=== PATIENT | male | born 1965 | race Caucasian/White ===

== ENCOUNTER 2023-06-26 12:53 | Outpatient (CLI) | payer OTHER, SELFPAY | END 2023-06-26 12:54 | disposition home or self-care (01) | PROVIDERS: PCP Family Medicine; Visit Provider Family Medicine | DX: I10 Essential (primary) hypertension (principal); Z13.220 Encounter for screening for lipoid disorders; Z12.5 Encounter for screening for malignant neoplasm of prostate | CPT/HCPCS: 80048; 80061; G0103 ==

== ENCOUNTER 2023-07-13 12:04 | Emergency (ER) | payer OTHER, SELFPAY ==
[2023-07-13 12:09] VITALS: BP 170/124; PULSE 90; RESP 22; TEMP 35.7; O2SAT 96; BMI 49.4
[2023-07-13 12:26] LABS: Appearance Urine Slightly Cloudy (Clear); Bilirubin Urine Negative (Negative); Blood Urine 3+ (Negative); Color Urine Yellow (Yellow); Glucose Urine Negative (Negative); Ketones Urine Negative (Negative); Leukocyte Esterase Urine 3+ (Negative); Nitrite Urine Negative (Negative); Protein Urine 3+ (Negative); Specific Gravity Urine >= 1.030 (1.000-1.030); Urobilinogen Urine 0.2 (0.2-1.0); pH Urine 5.5 (5.0-8.5)
[2023-07-13 12:35] LABS: Bacteria Urine Many; RBC Urine 25-50 (0-2); Squamous Epithelial Cell Urine Moderate (None-Few); WBC Urine >100 (0-5)
--- NOTE | 2023-07-13 12:58 | ED.MALEGU ---
HPI - Male Genitourinary General Date Seen: 07/13/23 Chief complaint: Urogenital Problems, Male Stated complaint: UTI Time Seen by Provider: 07/13/23 12:05 Source: patient Mode of arrival: ambulatory Limitations: no limitations History of Present Illness HPI Narrative: Patient is a 58-year-old male with history of hypertension presenting to the emergency department for dysuria and increased frequency. He states for the past few days he has been having some burning with urination and states he feels like he has to go multiple times a day pick only goes small amounts. He has never had issues like this before. Is he concerned he could have a urinary tract infection. Thinks he might have had a fever earlier in the week but none since then. She is not having any abdominal pain, of nausea/vomiting, diarrhea, lightheadedness, dizziness, weakness, numbness. He states he otherwise feels fine. He is not concerned for STDs at all at this time. Has not had any penile discharge, rashes, lesions. Related Data Previous Rx's Medication Instructions Recorded losartan 50 mg-hydrochlorothiazide 1 tab PO QDAY #30 tabs 06/28/23 12.5 mg tablet levofloxacin 750 mg tablet 750 mg PO Q24H #5 tabs 07/13/23 Allergies Allergy/AdvReac Type Severity Reaction Status Date / Time Penicillins Allergy Mild Unknown Verified 06/26/23 12:23 Review of Systems Status of ROS: Reports: 10 or more systems reviewed and unremarkable except as noted in History and below PFSH PFSH Medical History Primary hypertension ?I10 - Essential (primary) hypertension (ICD-10) Morbid obesity ?E66.01 - Morbid (severe) obesity due to excess calories (ICD-10) History of varicocele (04/2021) ?Z86.79 - Personal history of other diseases of the circulatory system (ICD-10) Surgical History History of arthroscopy of right knee ?Z98.890 - Other specified postprocedural states (ICD-10) History of removal of cyst ?Z98.890 - Other specified postprocedural states (ICD-10) History of hernia repair ?Z98.890 - Other specified postprocedural states (ICD-10) ?Z87.19 - Personal history of other diseases of the digestive system (ICD-10) Family History Father Prostate cancer Social History Narrative: , 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 Moist mucous membranes. GI: Nontender/Nondistended, No rebound or guarding. MSK:Extremities w/o deformity, Normal Active ROM Skin: Warm, Dry. No rashes or lesions. Neuro: Normal Muscle tone, No focal neurological deficits. Psych: Awake, Alert, & Oriented x3. Appropriate mood and affect. Const: Vital Signs, click to edit/add: Vital Signs - 24 hr 07/13/23 12:09 Temperature 96.3 F L Pulse Rate [Right Pulse Oximeter] 90 Respiratory Rate 22 Blood Pressure [Ri ght Forearm] 170/124 H Pulse Oximetry 96 Oxygen Delivery Me thod Room Air Course Vital Signs Vital signs: Initial Vital Signs Temperature 96.3 F L 07/13/23 12:09 Temperature Source Temporal Artery Scan 07/13/23 12:09 Pulse Rate 90 07/13/23 12:09 Pulse Rhythm Regular 07/13/23 12:09 Pulse Strength 3+ Normal 07/13/23 12:09 Respiratory Rate 22 07/13/23 12:09 Blood Pressure 170/124 H 07/13/23 12:09 Blood Pressure Mean 139 H 07/13/23 12:09 Blood Pressure Position Sitting 07/13/23 12:09 Pulse Oximetry 96 07/13/23 12:09 Oxygen Delivery Method Room Air 07/13/23 12:09 Vital Signs Temperature 96.3 F L 07/13/23 12:09 Pulse Rate 90 07/13/23 12:09 Respiratory Rate 22 07/13/23 12:09 Blood Pressure 170/124 H 07/13/23 12:09 Pulse Oximetry 96 07/13/23 12:09 Oxygen Delivery Method Room Air 07/13/23 12:09 Temperature 96.3 F L 07/13/23 12:09 Pulse Rate 90 07/13/23 12:09 Respiratory Rate 22 07/13/23 12:09 Blood Pressure 170/124 H 07/13/23 12:09 Pulse Oximetry 96 07/13/23 12:09 Oxygen Delivery Method Room Air 07/13/23 12:09 MDM - Male Genitourinary MDM Narrative Medical decision making narrative: Patient is a 58-year-old male presenting to the emergency department for what sounds like a UTI. While it is most likely may get UTIs and still can happen. I I spoke to her about possible STD testing but this time he declined this states he is not concerned about getting STD. He is having some very mild back pain started this morning but he does state he has had chronic pain due to his multiple injuries in the past and he has no CVA tenderness this seems very unlikely to be pyelonephritis. He has some blood in his urine also but again his symptoms seem much more likely to be a UTI than a kidney stone. He otherwise looks well at this time. I do not believe imaging is necessary at this time. Urinalysis was started was does show what appears to be UTI. I will start him on antibiotics. He is agreeable to this plan. Lab Data Labs: Lab Results 07/13/23 Range/Units 12:19 Urine Color Yellow (Yellow) Urine Appearance Slightly Cloudy A (Clear) Urine pH 5.5 (5.0-8.5) Ur Specific [place] >= 1.030 (1.000-1.030) Urine Protein 3+ A (Negative) Urine Glucose (UA) Negative (Negative) Urine Ketones Negative (Negative) Urine Blood 3+ A (Negative) Urine Nitrite Negative (Negative) Urine Bilirubin Negative (Negative) Urine Urobilinogen 0.2 (0.2-1.0) Ur Leukocyte Esterase 3+ A (Negative) Urine RBC 25-50 A (0-2) Urine WBC >100 A (0-5) Ur Squamous Epith Cells Moderate A (None-Few) Urine Bacteria Many A (None) Discharge Plan Discharge Clinical Impression: Urinary tract infection Qualifiers: Urinary tract infection type: acute cystitis Hematuria presence: with hematuria Qualified Code(s): N30.01 - Acute cystitis with hematuria Patient Disposition: Home, Self-Care Condition: Stable Instructions: Urinary Tract Infection in Men (DC) Additional Instructions: Take antibiotics as directed. If you are still having symptoms next week I recommend following up with the primary care provider. Return to emergency department for new or worsening symptoms. Prescriptions: New levofloxacin 750 mg tablet 750 mg PO Q24H Qty: 5 0RF No Action losartan-hydrochlorothiazide 50-12.5 mg tablet 1 tab PO QDAY Qty: 30 1RF Follow Up/Referrals: Jacques Post MD [Primary Care Provider] - Stand Alone Forms: [employer] Info Instructions
[2023-07-13 13:16] VITALS: BP 141/101
== END 2023-07-13 13:16 | disposition home or self-care (01) ==
PROVIDERS: Emergency Provider Student in an Organized Health Care Education/Training Program; PCP Family Medicine
DX: N39.0 Urinary tract infection, site not specified (principal)
CPT/HCPCS: 81001; 87086; 87186; 99282; 99283

== ENCOUNTER 2024-08-26 18:16 | Emergency (ER) | payer OTHER, SELFPAY ==
--- OUTSIDE RECORDS SUMMARY | 2024-08-26 18:18 | XMS_ITS | Clinical Summary ---
Author Organization [facility] Address [address] [place] [id number] Care Team Providers Care Safety And Skill Based Pay Manager Name Role Phone Pcp, No Primary Care Provider Unavailabl e Allergies Active Allergy Reactions Criticality Noted Date Comments Penicillins Other - Describe In Comment Field 0 09/24/2012 Penicillins *Unknown 07/10/2010 Medications lisinopril (PRINIVIL; ZESTRIL) 10 mg tabletIndication s:HTN (hypertension) TAKE ONE TABLET BY MOUTH ONCE DAILY 30 tablet 10/30/2016 Active Active Problems Problem Noted Date Diagnosed Date HTN (hypertension) 05/20/2016 Immunizations Immunization Administration Dates Next Due Tuberculin (PPD) 07/10/2010 Social History Tobacco Use Types Packs/Day Years Used Date Smoking Tobacco: Former Smokeless Tobacco: Former Alcohol Use Standard Drinks/Week Comments Not Asked 0 (1 standard drink = 0.6 oz pur e alcohol) Sex and Gender Information Value Date Recorded Sex Assigned at Not on file Legal Sex Male 4:33 PM CDT Gender Identity Not on file Sexual Orientation Not on file Obstetrics History Last Filed Vital Signs Vital Sign Reading Time Taken Comments Blood Pressure 127/79 05/31/2016 8:50 AM PROCESS STEWARD Pulse 71 05/31/2016 8:50 AM PROCESS STEWARD Temperature 36.7 C (98 F) 04/24/2016 11:34 AM PROCESS STEWARD Respiratory Rate 17 12/06/2015 11:45 PM CDT Oxygen Saturation 99% 12/06/2015 11:45 PM CDT Inhaled Oxygen Concentration - - Weight 174.6 kg (385 lb) 05/31/2016 8:50 AM PROCESS STEWARD Height 188 cm (6' 2.02) 12/06/2015 11:45 PM CDT Body Mass Index 49.41 12/06/2015 11:45 PM CDT Plan of Treatment Health Maintenance Due Date Last Done Comments Tdap 1977 HIV for age 15-65 1981 Hepatitis C screening for age 18-79 1984 Tetanus booster 1986 Colonoscopy through age 75 2011 Lipids for age 45-75 2011 Pneumococcal series for age 50+ (1 of 1 - PCV) 017 Zoster (shingles) series for age 50+ (1 of 2) 06/03/19 17 BMI (ht and wt on same day) for age 18+ 12/05/2016 0 12/06/2015 Depression screening for age 12+ 05/18/2017 05/18/20 16 COVID-19 vaccine series (2023- season) Influenza Vaccine (#1) 2024 Insurance [facility] ADVANTAGE PLAN BISHNU ANDERSON [id number] [facility] Care Teams Safety And Skill Based Pay Manager Relationship Specialty Start Date End Date Pcp, No . PCP - General 09/24/12
[2024-08-26 18:19] VITALS: BP 112/79; PULSE 102; RESP 18; TEMP 36.5; O2SAT 96; BMI 49.4
[2024-08-26 18:40] LABS: Appearance Urine Cloudy (Clear); Bilirubin Urine 2+ (Negative); Blood Urine 3+ (Negative); Color Urine Brown (Yellow); Glucose Urine Trace (Negative); Ketones Urine Trace (Negative); Leukocyte Esterase Urine 3+ (Negative); Nitrite Urine Positive (Negative); Protein Urine 3+ (Negative); pH Urine 5.5 (5.0-8.5)
[2024-08-26 19:03] LABS: Bacteria Urine Many; RBC Urine 50-100 (0-2); Squamous Epithelial Cell Urine Moderate (None-Few); WBC Urine 50-100 (0-5)
--- NOTE | 2024-08-26 19:30 | CRLHL7_ITS ---
For Patients: As a result of the Century Cures Act, medical imaging exams and procedure reports are released immediately into your electronic medical record. You may view this report before your referring provider. If you have questions, please contact your health care provider. Indication: Hematuria, UTI, right lower flank pain Technique: CT through the abdomen and pelvis following 150 mL Isovue 370 IV contrast Comparison: None Findings: Lower chest: Cardiomegaly. Hepatobiliary: Ill-defined and indeterminate density lesion in the right liver measures 2.5 centimeters. Spleen: Unremarkable. Pancreas: No acute abnormality appreciated. Adrenal glands: No acute abnormality appreciated. Kidneys: No significant parenchymal abnormality appreciated. No visualized calculi. No hydronephrosis. Bowel: Diverticulosis. No obstruction. Small hiatal hernia. No focal perienteric or pericolonic stranding is appreciated. The appendix is visualized and appears unremarkable. Vascular: Atherosclerosis. Lymph nodes: Shotty pelvic lymph nodes. Peritoneum: No free air. No free fluid. : Severe wall thickening and adjacent stranding of the bladder. Soft tissues: No acute abnormality appreciated. Bones: No acute fracture. No lytic or blastic lesion. Degenerative changes of the spine and pelvis. Impression: 1. Severe wall thickening and adjacent stranding involving the bladder compatible with reported history of UTI. No other acute abnormality appreciated. 2. Ill-defined indeterminate density lesion in the right liver measures 2.5 centimeters. No prior examination available for comparison. Nonemergent outpatient liver protocol MRI or CT recommended for further evaluation. Please note that all CT scans at this facility use dose modulation, iterative reconstruction, and/or weight-based dosing when appropriate to reduce radiation dose to as low as reasonably achievable. Dictated by Rinku Silveira MD @ 08/26/2024 9:27:09 PM (Electronically Signed)
--- OUTSIDE RECORDS SUMMARY | 2024-08-26 19:36 | XMS_ITS | Clinical Summary ---
Author Organization [facility] Address [address] [place] [id number] Care Team Providers Care Pole Incisor Operator Name Role Phone Pcp, No Primary Care [...] Comments Blood Pressure 127/79 05/31/2016 8:50 AM CUSHION PADDER Pulse 71 05/31/2016 8:50 AM CUSHION PADDER Temperature 36.7 C (98 F) 04/24/2016 11:34 AM CUSHION PADDER Respiratory Rate 17 12/06/2015 11:45 PM CDT Oxygen Saturation 99% 12/06/2015 11:45 PM CDT Inhaled Oxygen Concentration - - Weight 174.6 kg (385 lb) 05/31/2016 8:50 AM CUSHION PADDER Height 188 cm (6' 2.02) 12/06/2015 11:45 [...] (2023- season) Influenza Vaccine (#1) 2024 Insurance [facility] ADVANTAGE PLAN BISHNU ANDERSON [id number] [facility] Care Teams Pole Incisor Operator Relationship Specialty Start Date End Date Pcp, No . PCP - General 09/24/12
--- NOTE | 2024-08-26 19:49 | ED_ITS ---
HPI - General Adult General Date Seen: 08/26/24 Chief complaint: Urogenital Problems, Male Stated complaint: uti Time Seen by Provider: 08/26/24 19:24 Source: patient Mode of arrival: ambulatory Limitations: no limitations History of Present Illness HPI narrative: patient is a 59-year-old male presenting to the emergency department for concerns of a UTI. He started noticing symptoms 3 days ago and tried some [id number] medication without any improvement. Symptoms kept getting worse so he came to the emergency department for evaluation. States he has had a UTI before and has felt very similar. Note he has been urinating quite a bit of blood also and passing clots. Also states he does not feel like he is fully emptying his bladder when he urinates. Does not feel like he is urinating more frequently though. Does note some very mild 1/10 right lower flank discomfort they just started to notice today. Has not had pain in this area before that he is aware of. Denies fevers, chills, chest pain, shortness of breath, weakness, numbness, abdominal pain, diarrhea, constipation. No other concerns noted no history of smoking. Related Data Previous Rx's ?Medication ?Instructions ?Recorded amlodipine 5 mg tablet 5 mg PO QDAY #90 tabs 04/08/24 losartan 100 1 tab PO QDAY #90 tabs 04/08/24 mg-hydrochlorothiazide 12.5 mg tablet cefpodoxime 200 mg tablet 200 mg PO BID 10 days #20 tabs 08/26/24 Allergies Allergy/AdvReac Type Severity Reaction Status Date / Time Penicillins Allergy Mild Unknown Verified 04/08/24 11:46 Review of Systems Status of ROS: Reports: 10 or more systems reviewed and unremarkable except as noted in History and below [facility] Medical History Primary hypertension ?I10 - Essential (primary) hypertension (ICD-10) Morbid obesity ?E66.01 - Morbid (severe) obesity due to excess calories (ICD-10) History of varicocele (04/2021) ?Z86.79 - Personal history of other diseases of the circulatory system (ICD- 10) Surgical History History of arthroscopy of right knee ?Z98.890 - Other specified postprocedural states (ICD-10) History of removal of cyst ?Z98.890 - Other specified postprocedural states (ICD-10) History of hernia repair ?Z98.890 - Other specified postprocedural states (ICD-10) ?Z87.19 - Personal history of other diseases of the digestive system (ICD-10) Family History Father Prostate cancer Social History Narrative: , 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[employer], 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, no EtOH What is your current living situation?: I presently have a place to live Problems where you live: no known problems In the past 12 months, utilities in danger of being shut off: no In past 12 months, lack of transportation kept you from medical appts, meetings, work, or getting things needed for daily living: no In the past 12 mos, have been you worried that your food would run out before you had money to buy more?: sometimes true In the past 12 mos, the food you bought just didn't last and you didn't have money to buy more?: never true Smoking Status: Never smoker Do you use any of these nicotine containing products: None Second hand tobacco smoke exposure: No How often do you have a drink containing alcohol: never How often do you have six or more drinks on one occasion: Never AUDIT-C Alcohol total score: 0 Non-prescribed substance use: denies use How often does anyone, including family, friends and others, physically hurt you : never How often does anyone, including family, friends and others, insult or talk down to you: never How often does anyone, including family, friends and others, threaten you with harm: never How often does anyone, including family, friends and others, scream or curse at you: never service: No Health Related Social Needs: food insecurity (Z59.41) Exam Narrative: Exam Narrative: Const: Well-nourished, Well-developed, in No distress Eyes: PERRL, no conjunctival injection, and symmetrical lids HENT: Atraumatic external nose and ears. Moist mucous membranes. Neck: Symmetric, trachea midline, No thyromegaly. CVS: RRR, No murmurs or gallops. Peripheral pulses 2+ and equal in all extremities RESP: Unlabored respiratory effort. Clear to auscultation bilaterally. GI: Nontender/Nondistended, No rebound or guarding. MSK:Extremities w/o deformity, Normal Active ROM Skin: Warm, Dry. No rashes or lesions. Neuro: Normal Muscle tone, No focal neurological deficits. Psych: Awake, Alert, & Oriented x3. Appropriate mood and affect. Const: Vital Signs, click to edit/add: Vital Signs - 24 hr 08/26/24 18:19 08/26/24 21:16 Temperature 97.7 F 97.6 F Pulse Rate [Pulse Oximeter] 102 H 79 Respiratory Rate 18 18 Blood Pressure [Ri ght Upper Arm] 112/79 128/99 H Pulse Oximetry 96 95 Oxygen Delivery Me thod Room Air Room Air Course Vital Signs Vital signs: Initial Vital Signs Temperature 97.7 F 08/26/24 18:19 Temperature Source Oral 08/26/24 18:19 Pulse Rate 102 H 08/26/24 18:19 Respiratory Rate 18 08/26/24 18:19 Blood Pressure 112/79 08/26/24 18:19 Blood Pressure Mean 90 08/26/24 18:19 Blood Pressure Position Sitting 08/26/24 18:19 Pulse Oximetry 96 08/26/24 18:19 Oxygen Delivery Method Room Air 08/26/24 18:19 Vital Signs Temperature 97.7 F 08/26/24 18:19 Pulse Rate 102 H 08/26/24 18:19 Respiratory Rate 18 08/26/24 18:19 Blood Pressure 112/79 08/26/24 18:19 Pulse Oximetry 96 08/26/24 18:19 Oxygen Delivery Method Room Air 08/26/24 18:19 Temperature 97.6 F 08/26/24 21:16 Pulse Rate 79 08/26/24 21:16 Respiratory Rate 18 08/26/24 21:16 Blood Pressure 128/99 H 08/26/24 21:16 Pulse Oximetry 95 08/26/24 21:16 Oxygen Delivery Method Room Air 08/26/24 21:16 Medications Administered Medications: Discontinued Medications Generic Name Dose Route Start Last Admin Trade Name Freq PRN Reason Stop Dose Admin Ceftriaxone Sodium 1 gm/ 100 mls @ 200 mls/hr 08/26/24 20:40 08/26/24 21:51 Sodium Chloride IVPB 08/26/24 20:41 Infused ONCE ONE Infusion Medical Decision Making MDM Narrative Medical decision making narrative: patient is a 59-year-old male presenting for concerns of UTI. Urinalysis ordered in triage. With the bleeding I do have some concern about possible cancer but he is not a smoker so this is likely. Is having the right lower flank pain which is concerning for an ascending UTI. Will order a CT scan for better evaluation. Will Also do a pre and postvoid bladder scan to make sure he is emptying his bladder appropriately. overall looks well. Will order CBC, BMP. patient's CBC returned with a white count of 15.06. With his tachycardia he does meet SIRS criteria. Blood cultures and lactate were ordered. His heart rate did improve and I held off on fluids at this time As he looks otherwise well. my concern for substance in this vandana's low. Lactate came back within normal limits. CBC and BMP shows no concerning abnormalities. Urinalysis does clearly show a UTI. pre and postvoid bladder scan shows he is emptying his bladder appropriately. CT scan shows severe wall thickening around the bladder compatible with a UTI. Also has ill-defined lesion in the liver. This can be follow-up outpatient. Did give the patient a dose of Rocephin. Will discharge him on cefpodoxime for 10 days. He is agreeable to this plan. Lab Data Labs: Lab Results 08/26/24 08/26/24 08/26/24 Range/Units 18:04 20:07 21:11 WBC 15.06 H (4.50-11.00) K/uL RBC 5.45 (4.30-5.90) m/uL Hgb 15.8 (13.5-17.5) gm/dL Hct 48.4 (37.0-53.0) % MCV 89 (80-100) fL MCH 29 (26-34) pg MCHC 33 (32-36) gm/dL RDW Coeff of Kurt 13.8 (11.5-15.5) % Plt Count 221 (140-440) K/uL Neut % (Auto) 77.0 H (42.0-72.0) % Lymph % (Auto) 12.6 L (20-44) % [place] % (Auto) 10.0 (0.0-11.0) % Eos % (Auto) 0.1 (0.0-7.0) % Baso % (Auto) 0.1 (0.0-3.0) % Neut # (Auto) 11.60 H (1.7-7.0) K/uL Lymph # (Auto) 1.90 (0.90-2.90) K/uL [place] # (Auto) 1.50 H (0.00-0.90) K/UL Eos # (Auto) 0.00 (0.00-0.50) K/uL Baso # (Auto) 0.00 (0.00-0.30) K/uL Abs Immat Gran (auto) 0.00 (0.00-0.30) K/uL Imm/Tot Granulo (auto) 0.2 % Sodium 135 (135-149) mmol/L Potassium 3.9 (3.6-5.1) mmol/L Chloride 99 (96-114) mmol/L Carbon Dioxide 27 (20-32) mmol/L Anion Gap 9 (7-15) mEq/L BUN 14 (7-30) mg/dL Creatinine 1.2 (0.5-1.5) mg/dL Estimated Creat Clear 78.01 Estimated GFR 70 ml/min Glucose 112 (60-115) mg/dL Lactate 1.0 (0.5-1.9) mmol/L Calcium 8.9 (8.4-10.6) mg/dL Urine Color Brown A (Yellow) Urine Appearance Cloudy A (Clear) Urine pH 5.5 (5.0-8.5) Ur Specific [place] 1.010 (1.000-1.030) Urine Protein 3+ A (Negative) Urine Glucose (UA) Trace A (Negative) Urine Ketones Trace A (Negative) Urine Blood 3+ A (Negative) Urine Nitrite Positive A (Negative) Urine Bilirubin 2+ A (Negative) Urine Urobilinogen 2.0 A (0.2-1.0) Ur Leukocyte Esterase 3+ A (Negative) Urine RBC 50-100 A (0-2) Urine WBC 50-100 A (0-5) Ur Squamous Epith Cells Moderate A (None-Few) Urine Bacteria Many A (None) POC Creatinine 1.4 H (0.6-1.3) mg/dl Imaging Data CT scan abdomen pelvis: Attestation: I have reviewed the pertinent imaging results. Radiologist's impression: 1. Severe wall thickening and adjacent stranding involving the bladder compatible with reported history of UTI. No other acute abnormality appreciated. 2. Ill-defined indeterminate density lesion in the right liver measures 2.5 centimeters. No prior examination available for comparison. Nonemergent outpatient liver protocol MRI or CT recommended for further evaluation. Please note that all CT scans at this facility use dose modulation, iterative reconstruction, and/or weight-based dosing when appropriate to reduce radiation dose to as low as reasonably achievable. Dictated by Rinku Silveira MD @ 08/26/2024 9:27:09 PM Discharge Plan Discharge Clinical Impression: Urinary tract infection Qualifiers: Urinary tract infection type: acute cystitis Hematuria presence: with hematuria Qualified Code(s): N30.01 - Acute cystitis with hematuria Patient Disposition: Home, Self-Care Condition: Stable Instructions: Urinary Tract Infection in Men (ED) Additional Instructions: I do recommend close follow-up with the primary care provider for your recurrent UTIs. Take the cefpodoxime for 10 days. You do have an ill-defined density in the liver. Since they have nothing to compare to see if this is new or not. radiology does recommend a non emergent outpatient liver protocol MRI or CT for further evaluation Prescriptions: New cefpodoxime 200 mg tablet 200 mg PO BID 10 Days Qty: 20 0RF Rx Instructions: must administer with a meal/food No Action losartan-hydrochlorothiazide 100-12.5 mg tablet 1 tab PO QDAY Qty: 90 3RF amlodipine 5 mg tablet 5 mg PO QDAY Qty: 90 1RF Follow Up/Referrals: Jacques Post MD [Primary Care Provider] - Stand Alone Forms: [employer] Info Instructions
[2024-08-26 20:30] LABS: Chloride* 99 mmol/L (96-114); Potassium* 3.9 mmol/L (3.6-5.1); Sodium* 135 mmol/L (135-149)
[2024-08-26 20:31] LABS: Basophils Percent Auto 0.1 % (0.0-3.0); Eosinophils Percent Auto 0.1 % (0.0-7.0); Hematocrit 48.4 % (37.0-53.0); Hemoglobin* 15.8 gm/dL (13.5-17.5); Immature Granulocytes Pct Auto 0.2 %; Lymphocytes Percent Auto 12.6 % (20-44); Mean Corpuscular HGB Conc 33 gm/dL (32-36); Mean Corpuscular Hemoglobin 29 pg (26-34); Mean Corpuscular Volume 89 fL (80-100); Platelet Count* 221 K/uL (140-440); RDW Coefficient of Variation % 13.8 % (11.5-15.5); Red Blood Count 5.45 m/uL (4.30-5.90); White Blood Count* 15.06 K/uL (4.50-11.00)
[2024-08-26 20:33] LABS: Anion Gap 9 mEq/L (7-15); Blood Urea Nitrogen* 14 mg/dL (7-30); Calcium* 8.9 mg/dL (8.4-10.6); Carbon Dioxide* 27 mmol/L (20-32); Creatinine* 1.2 mg/dL (0.5-1.5); Est. Creatinine Clearance* 78.01; Estimated Glomerular Filt Rate 70 ml/min; Glucose* 112 mg/dL (60-115)
[2024-08-26 20:34] LABS: Creatinine, Point-of-Care* 1.4 mg/dl (0.6-1.3)
[2024-08-26 20:35] LABS: Slide Review Reflex No
[2024-08-26] MEDS: cefTRIAXone 1 GM in 0.9 % SODIUM CHLORIDE Mini-bag 100 ML IVPB (21:11)
[2024-08-26 21:16] VITALS: BP 128/99; PULSE 79; RESP 18; TEMP 36.4; O2SAT 95
== END 2024-08-26 22:24 | disposition home or self-care (01) ==
PROVIDERS: Emergency Provider Student in an Organized Health Care Education/Training Program; PCP Family Medicine
DX: N39.0 Urinary tract infection, site not specified (principal)
CPT/HCPCS: 36415; 51798; 74177; 80048; 81001; 82565; 83605; 85025; 87040; 87086; 96365; 99284; 99285; J0696; Q9967

== ENCOUNTER 2024-10-22 08:35 | Outpatient (CLI) | payer OTHER, SELFPAY | END 2024-10-22 08:36 | disposition home or self-care (01) | PROVIDERS: PCP Family Medicine; Visit Provider Family Medicine | DX: I10 Essential (primary) hypertension (principal); Z12.5 Encounter for screening for malignant neoplasm of prostate | CPT/HCPCS: 80061; G0103 ==